=== PATIENT | male | born 1995 | race Caucasian/White ===

== ENCOUNTER 2019-09-27 15:30 | Emergency (ER) | payer OTHER ==
--- NOTE | 2019-09-27 15:52 | ER Document Report ---
ED Medical Screen (RME) - General Chief Complaint: Leg Pain Stated Complaint: LEFT LEG/FOOT NUMBNESS Time Seen by Provider: 09/27/19 15:34 Notes: Patient is a 24-year-old male who presents to the emergency department with a chief complaint of left leg numbness. Patient reports 30 minutes prior to arrival he was ambulating at his house when he felt like something bit the bottom of his foot, as it felt like "something was grabbing onto the bottom of my foot." Patient reports he did not see any type of spider or bug. Patient reports he is having numbness to the back of his left leg that starts at the foot and radiates up to the left hip. Patient reports the front of his leg feels completely normal. Patient reports since then he has developed some shortness of breath and chest heaviness. states he had a few minutes of slurred speech. Patient denies recent injury, fall, head injury. Patient reports he does not have any medical problems and does not take any medication on a daily basis. Patient denies back pain. Patient denies recent illness or fever. - Related Data Allergies/Adverse Reactions: No Known Allergies Allergy (Verified 09/27/19 15:51) Physical Exam - Neurological Neuro grossly intact: Yes - PERRLA, 5 mm bilaterally. Cognition: Normal Orientation: AAOx4 Alonzo Coma Scale Eye Opening: Spontaneous Alonzo Coma Scale Verbal: Oriented Pyatt Coma Scale Motor: Obeys Commands Alonzo Coma Scale Total: 15 Speech: Normal Cranial nerves: Normal Cerebellar coordination: Normal Motor strength normal: LUE, RUE, LLE, RLE Additional motor exam normals: Equal gold blower, Dorsiflexion, Plantar flexion Knee - Reflex grade: 2 = Normal Course - Re-evaluation Re-evalutation: 09/27/19 15:50 Upon initial assessment patient is able to ambulate around the triage room with a steady gait. Patient does report numbness to the back of his left leg but reports that the front of his left leg is normal. Patient reports he is having some chest heaviness. Patient denies headache or dizziness. Patient speech is clear and appropriate. Patient does not have facial droop, weakness on one side of the body. We will obtain basic labs, urinalysis, urine drug screen as well as a troponin and EKG. Patient nontoxic-appearing. I have greeted and performed a rapid initial assessment of this patient. A comprehensive ED assessment and evaluation of the patient, analysis of test results and completion of the medical decision making process will be conducted by additional ED providers.
[2019-09-27 16:21] LABS: ABSOLUTE LYMPHOCYTES (AUTO) 1.1 10^3/uL (0.5-4.7); ABSOLUTE MONOCYTES (AUTO) 0.4 10^3/uL (0.1-1.4); ABSOLUTE NEUT (AUTO) 7.6 10^3/uL (1.7-8.2); BASOPHILS % (AUTO) 0.2 % (0-2); EOSINOPHILS % (AUTO) 0.5 % (0-6); HEMATOCRIT 46.5 % (37.9-51.0); HEMOGLOBIN 16.4 g/dL (13.5-17.0); LYMPHOCYTES % (AUTO) 12.4 % (13-45); MEAN CORPUSCULAR HEMOGLOBIN 30.6 pg (27.0-33.4); MEAN CORPUSCULAR HGB CONC 35.4 g/dL (32.0-36.0); MEAN CORPUSCULAR VOLUME 87 fl (80-97); MONOCYTES % (AUTO) 4.4 % (3-13); PLATELET COUNT 164 10^3/uL (150-450); RED BLOOD COUNT 5.36 10^6/uL (4.35-5.55); RED CELL DISTRIBUTION WIDTH 12.9 % (11.5-14.0); SEGMENTED NEUTROPHILS % (AUTO) 82.5 % (42-78); TOTAL CELLS COUNTED % (AUTO) 100 %; WHITE BLOOD COUNT 9.2 10^3/uL (4.0-10.5)
[2019-09-27 16:41] LABS: ALBUMIN 5.2 g/dL (3.5-5.0); ALKALINE PHOSPHATASE 62 U/L (38-126); ANION GAP 17 (5-19); ASPARTATE AMINO TRANSFERASE 38 U/L (17-59); BILIRUBIN,DIRECT 0.2 mg/dL (0.0-0.4); BILIRUBIN,TOTAL 0.9 mg/dL (0.2-1.3); BLOOD UREA NITROGEN 18 mg/dL (7-20); CALCIUM 10.1 mg/dL (8.4-10.2); CARBON DIOXIDE 21 mmol/L (22-30); CHLORIDE 102 mmol/L (98-107); GLUCOSE 114 mg/dL (75-110); POTASSIUM 3.5 mmol/L (3.6-5.0); TOTAL PROTEIN 7.6 g/dL (6.3-8.2)
--- NOTE | 2019-09-27 16:46 | RADIOLOGY REPORT (SQ) ---
EXAM DESCRIPTION: CHEST 2 VIEWS COMPLETED DATE/TIME: 09/27/2019 3:16 pm REASON FOR STUDY: chest pressure COMPARISON: None. EXAM PARAMETERS: NUMBER OF VIEWS: two views TECHNIQUE: Digital Frontal and Lateral radiographic views of the chest acquired. RADIATION DOSE: NA LIMITATIONS: none FINDINGS: LUNGS AND PLEURA: No opacities, masses or pneumothorax. No pleural effusion. MEDIASTINUM AND HILAR STRUCTURES: No masses or contour abnormalities. HEART AND VASCULAR STRUCTURES: Heart normal size. No evidence for failure. BONES: No acute findings. HARDWARE: None in the chest. OTHER: No other significant finding. IMPRESSION: NO ACUTE RADIOGRAPHIC FINDING IN THE CHEST. TECHNICAL DOCUMENTATION: JOB ID: [id number] [employer]- All Rights Reserved Reading location - IP/workstation name: [email or web address]
[2019-09-27 18:42] LABS: APPEARANCE,URINE CLEAR; BILIRUBIN,URINE NEGATIVE (NEGATIVE); COLOR,URINE YELLOW; GLUCOSE, URINE NEGATIVE (NEGATIVE); KETONES,URINE 20 mg/dL (NEGATIVE); LEUKOCYTE ESTERASE,URINE NEGATIVE (NEGATIVE); NITRITE,URINE NEGATIVE (NEGATIVE); PROTEIN,URINE NEGATIVE (NEGATIVE); UROBILINOGEN,URINE NEGATIVE mg/dL (<2.0)
[2019-09-27 19:05] LABS: URINE AMPHETAMINES SCREEN NEGATIVE; URINE BARBITURATES SCREEN NEGATIVE; URINE BENZODIAZEPINES SCREEN NEGATIVE; URINE COCAINE SCREEN NEGATIVE; URINE MARIJUANA (THC) SCREEN NEGATIVE; URINE METHADONE SCREEN NEGATIVE; URINE PHENCYCLIDINE SCREEN NEGATIVE
[2019-09-27] MEDS ORDERED: DEXAMETHASONE SOD PHOS INJ 10 MG/1 ML VIAL IM ONE (21:46)
--- NOTE | 2019-09-27 21:47 | ER Document Report ---
ED General - General Chief Complaint: Numbness Stated Complaint: LEFT LEG/FOOT NUMBNESS Time Seen by Provider: 09/27/19 15:34 Primary Care Provider: [facility] [Provider Group] - 09/29/19 Notes: Patient is a 24-year-old male who presents to the emergency department with a chief complaint of left leg numbness. This happened about 30 minutes prior to arrival. Patient states that he felt like he got bit by something on his left foot, and then he had the numbness spread to his left upper leg. Patient is member and he has been doing a lot of PT lately. TRAVEL OUTSIDE OF THE [place] IN LAST 30 DAYS: No - Related Data Allergies/Adverse Reactions: No Known Allergies Allergy (Verified 09/27/19 15:51) Past Medical History - General Information source: Patient - Social History Smoking Status: Never Smoker Chew tobacco use (# tins/day): No Frequency of alcohol use: None Drug Abuse: None Family History: Reviewed & Not Pertinent Patient has suicidal ideation: No Patient has homicidal ideation: No Review of Systems - Review of Systems Notes: REVIEW OF SYSTEMS: CONSTITUTIONAL : Denies recent illness. Denies recent unintentional weight loss. Denies fever, chills, or sweats. EENT: Denies eye, ear, throat, or mouth pain, discharge, or symptoms. Denies nasal or sinus congestion. CARDIOVASCULAR: Denies chest pain. RESPIRATORY: Denies shortness of breath, cough, congestion, difficulty b reathing, or wheezing. GASTROINTESTINAL: Denies nausea, vomiting, and diarrhea. Denies abdominal pain. Denies constipation. GENITOURINARY: Denies difficulty urinating, burning, blood in urine, urgency or frequency. MUSCULOSKELETAL: Denies neck and back pain. Denies joint pain or swelling. SKIN: See HPI. HEMATOLOGIC : Denies easy bruising or bleeding. LYMPHATIC: Denies swollen, painful, enlarged glands. NEUROLOGICAL: See HPI. Denies headache. Denies altered mental status. Denies alteration in speech. PSYCHIATRIC: Denies stress, anxiety, alteration in sleep patterns, or depressio n. All other systems reviewed and negative. Physical Exam - Vital signs Vitals: Temp Pulse Resp BP Pulse Ox 98.5 F 69 16 148/79 H 100 09/27/19 21:58 09/27/19 21:58 09/27/19 21:58 09/27/19 21:58 09/27/19 21:58 - Notes Notes: PHYSICAL EXAMINATION: GENERAL: Appears well, healthy, well-nourished, no acute distress. HEAD: Normocephalic, atraumatic. EYES: PERRL, conjunctiva normal, all extraocular movements intact, sclera nonicteric ENT: Moist mucous membranes. NECK: Supple, no noticeable swelling, redness, rash. Normal range of motion. LUNGS: Equal breath sounds bilaterally and clear to auscultation. No wheezes rales or rhonchi. CARDIOVASCULAR: S1-S2, regular rate, regular rhythm. Radial pulses 2+, normal. ABDOMEN: Normoactive bowel sounds. Soft, nontender, no guarding, no rebound tenderness, and no masses palpated. EXTREMITIES: Normal strength and range of motion, no pitting or edema. No cyanosis. NEUROLOGICAL: Moves all extremities upon command. Strength 5/5 in all extremities. PSYCH: Normal mood, normal affect. SKIN: Warm, dry. No rash, lesions, ulcerations noted. Normal skin turgor. Edema noted to bottoms of both feet. Course - Re-evaluation Re-evalutation: 09/27/19 21:53 Patient's hematology does not show leukocytosis, but he does have a sick neutr ophil count of 82.5%. Potassium is 3.5. His albumin is elevated. Troponin is negative. Patient also has ketones in his urine. His toxicology screen was negative. I suspect the patient is dehydrated. I instructed him to drink plenty of fluids. His chest x-ray is also negative. His physical exam is also consistent with cellulitis of his bilateral lower feet. He will start him on Keflex. He will follow-up with his primary care provider. Follow-up precautions were given. Verbal discharge instructions were given to the patient. They verbalized understanding. They are stable for discharge. - Vital Signs Vital signs: Temp Pulse Resp BP Pulse Ox 98.5 F 69 16 148/79 H 100 09/27/19 21:58 09/27/19 21:58 09/27/19 21:58 09/27/19 21:58 09/27/19 21:58 - Laboratory Result Diagrams: 09/27/19 15:56 09/27/19 15:56 Laboratory results interpreted by me: 09/27/19 09/27/19 09/27/19 15:56 15:56 18:27 Lymph % (Auto) 12.4 L Seg Neutrophils % 82.5 H Potassium 3.5 L Carbon Dioxide 21 L Glucose 114 H Albumin 5.2 H Urine Ketones 20 H - EKG Interpretation by Me Additional EKG results interpreted by me: 09/27/19 21:55 Sinus rhythm. Discharge - Discharge Clinical Impression: Left leg numbness, Dehydration Cellulitis Qualifiers: Site of cellulitis: extremity Site of cellulitis of extremity: lower extremity Laterality: left Qualified Code(s): L03.116 - Cellulitis of left lower limb Condition: Stable Disposition: HOME, SELF-CARE Additional Instructions: You were seen today in the emergency department for numbness of your left foot. You are being treated for cellulitis. Make sure you take all your medications as prescribed. Your urine also showed that you are dehydrated. Make sure you drink plenty of fluids. Follow-up with your primary care provider in regards to this visit. Prescriptions: Cephalexin Monohydrate [Keflex 500 mg Capsule] 500 mg PO Q6H 5 Days #28 capsule Referrals: [facility] [Provider Group] - 09/29/19
[2019-09-27 23:00] VITALS: BP 148/79
--- NOTE | 2019-09-27 23:06 | EKG REPORT ---
SEVERITY:- ABNORMAL ECG - SINUS RHYTHM PROBABLE LEFT ATRIAL ABNORMALITY INCOMPLETE RBBB AND LAFB : Confirmed by: Hemal Gibbs MD 27-Sep-2019 23:04:55
== END 2019-09-27 21:58 | disposition home or self-care (01) ==
LOC: ER 15:30 → EDBD 15:30 → ER 21:58
DX: R20.0 Anesthesia of skin (principal); E86.0 Dehydration; L03.116 Cellulitis of left lower limb
CPT/HCPCS: 99284; 96372; 36415; 85025; 80053; 81001; 84484; 80307; 71046; 93005; 93010; J1100